=== PATIENT | female | born 1985 | race Hispanic/Latino ===

== ENCOUNTER 2022-05-05 14:00 | Inpatient (IN) | payer BC ==
[~2022-05-05] VITALS: Ht 157.5 cm; Wt 88.0 kg
[~2022-05-05 14:00] MED LIST: PREN-196 PO
[2022-05-05 16:08] LABS: HEMATOCRIT 33.5 % (36-48); MEAN CORPUSCULAR HEMOGLOBIN 30.1 pg (27.0-33.0); MEAN CORPUSCULAR HGB CONC 34.6 g/dL (32.0-36.0); MEAN CORPUSCULAR VOLUME 86.8 fL (79-99); RED BLOOD CELL COUNT(AUTO) 3.86 MIL/uL (4.00-5.50); RED CELL DISTRIBUTION WIDTH 15.8 % (11.0-15.5); WHITE BLOOD COUNT (AUTO) 8.1 K/uL (4.8-10.8)
[2022-05-05 20:47] LABS: RAPID PLASMA REAGIN NONREACTIVE (NONREACTIVE)
[2022-05-06] MEDS ORDERED: CEFAZOLIN SODIUM 1 GM VIAL IVP PRN (05:30)
[2022-05-06] MEDS ORDERED: CALDOLOR 800MG+NS 250ML 250 ML IV PRN (05:30)
[2022-05-06] MEDS ORDERED: LACTATED RINGERS 1000ML 1,000 ML IV SCH (05:30)
[2022-05-06 06:00] VITALS: BP 116/78
[2022-05-06 06:00] LABS: APPEARANCE,URINE CLEAR (CLEAR); BILIRUBIN,URINE NEGATIVE (NEGATIVE); COLOR,URINE YELLOW (YELLOW); GLUCOSE, URINE (UA) NEGATIVE (NEGATIVE); KETONES,URINE NEGATIVE (NEGATIVE); LEUKOCYTE ESTERASE ,URINE NEGATIVE (NEGATIVE); NITRATE,URINE NEGATIVE (NEGATIVE); OCCULT BLOOD,URINE TRACE-INTACT (NEGATIVE); PH,URINE 6.5 (5.0-8.0); PROTEIN,URINE NEGATIVE (NEGATIVE); UROBILINOGEN,URINE 0.2 mg/dL (0.2-1.0)
[2022-05-06 06:16] LABS: BACTERIA,URINE Moderate /HPF (None Seen); SQUAMOUS EPITHELIAL CELL,UR Moderate /HPF (0-2)
[2022-05-06 06:18] LABS: RBC,URINE 0-1 /HPF (0-1)
[2022-05-06] MEDS ORDERED: CITRIC ACID/SODIUM CITRATE 30 ML UDCUP ONE (06:37)
[2022-05-06] MEDS ORDERED: MORPHINE PF 100MG/10ML AMP IV ONE (06:41)
[2022-05-06] MEDS ORDERED: FENTANYL CITRATE PF 50 MCG/1 ML 2ML VIAL ONE (06:41)
[2022-05-06] MEDS ORDERED: PHENYLEPHRINE HCL 10 MG/ML 1ML VIAL IV ONE (06:57)
[2022-05-06] MEDS ORDERED: ONDANSETRON 4MG INJ ONE (07:02)
[2022-05-06] MEDS ORDERED: OXYTOCIN 10 USP UNITS/ML ONE (07:17)
[2022-05-06] MEDS ORDERED: FAMOTIDINE 20MG VIAL IV ONE (07:26)
[2022-05-06 10:09] VITALS: BP 105/61
[2022-05-06 11:08] VITALS: BP 96/60
[2022-05-06] MEDS ORDERED: MEPERIDINE-PF 75 MG/ML SYG IM PRN (11:30)
[2022-05-06] MEDS ORDERED: OXYTOCIN-LR 20 UNITS/1000 ML 1,000 ML IV PRN (11:30)
[2022-05-06] MEDS ORDERED: PROMETHAZINE HCL 25 MG/ML 1ML AMPULE IM PRN (11:30)
[2022-05-06] MEDS ORDERED: 0.9%NACL 10ML VIAL IVP PRN (11:30)
[2022-05-06] MEDS: ACETAMINOPHEN WITH CODEINE 1 TAB TAB PO PRN (13:06)
[2022-05-06] MEDS: DEXTROSE 5 %-0.45 % NACL 1,000 ML IV PRN (14:32)
[2022-05-06] MEDS: CEFAZOLIN SODIUM 1 GM VIAL IVP SCH ×2 (15:21→23:05)
[2022-05-06] MEDS: CALDOLOR 800MG+NS 250ML 250 ML IV SCH ×2 (15:59→23:06)
[2022-05-06 16:16] VITALS: BP 97/59
[2022-05-06 20:02] VITALS: BP 94/59
[2022-05-06] MEDS ORDERED: DiphenhydrAMINE HCL 50 MG/ML VIAL ONE (21:07)
[2022-05-06] MEDS ORDERED: EPHEDRINE SULFATE 50 MG/ML AMPULE IVP PRN (21:30)
[2022-05-06] MEDS ORDERED: DiphenhydrAMINE HCL 50 MG/ML VIAL IVP PRN (21:30)
[2022-05-06] MEDS ORDERED: ONDANSETRON 4MG INJ IVP PRN (21:30)
[2022-05-06] MEDS ORDERED: NALOXONE HCL 0.4 MG/1 ML ML IVP PRN ×3 (21:30)
[2022-05-06] MEDS ORDERED: LORATADINE 10 MG TABLET PO PRN (21:30)
[2022-05-07] VITALS (7 sets, daily range): BP systolic 91–117; BP diastolic 50–68
[2022-05-07] MEDS: DEXTROSE 5 %-0.45 % NACL 1,000 ML IV PRN (02:32)
[2022-05-07 05:31] LABS: HEMATOCRIT 32.5 % (36-48); MEAN CORPUSCULAR HGB CONC 33.2 g/dL (32.0-36.0); MEAN CORPUSCULAR VOLUME 87.4 fL (79-99); RED BLOOD CELL COUNT(AUTO) 3.72 MIL/uL (4.00-5.50); RED CELL DISTRIBUTION WIDTH 15.9 % (11.0-15.5)
[2022-05-07] MEDS ORDERED: LANOLIN 30GM OINTMENT TP PRN (06:00)
[2022-05-07] MEDS ORDERED: HYDROCODONE/ACETAMINOPHEN 5/325 MG TAB PO PRN (06:00)
[2022-05-07] MEDS ORDERED: BISACODYL 10 MG SUPP.RECT RC PRN (06:00)
[2022-05-07] MEDS ORDERED: ACETAMINOPHEN WITH CODEINE 1 TAB TAB PO PRN (06:00)
[2022-05-07] MEDS ORDERED: ACETAMINOPHEN 500 MG TABLET PO PRN (06:00)
[2022-05-07] MEDS: ACETAMINOPHEN WITH CODEINE 1 TAB TAB PO PRN ×3 (07:53→22:44)
[2022-05-07] MEDS: DOCUSATE SODIUM 100 MG CAP PO SCH ×2 (08:50→20:28)
[2022-05-07] MEDS: SIMETHICONE 80 MG TAB.CHEW PO PRN ×2 (08:50→20:28)
[2022-05-07] MEDS: IBUPROFEN 600 MG TABLET PO PRN (11:30)
[2022-05-08] MEDS: IBUPROFEN 600 MG TABLET PO PRN ×2 (02:35→08:28)
[2022-05-08 04:09] VITALS: BP 124/72
[2022-05-08 07:11] VITALS: BP 103/55
[2022-05-08] MEDS: DOCUSATE SODIUM 100 MG CAP PO SCH (08:26)
[2022-05-08] MEDS: SIMETHICONE 80 MG TAB.CHEW PO PRN (08:26)
[2022-05-08 11:05] VITALS: BP 109/69
[2022-05-08 11:10] VITALS: BP 124/69
[2022-05-08] MEDS ORDERED: ACET-2079 PO (12:38)
== END 2022-05-08 13:05 | disposition home or self-care (01) | DRG 785 ==
LOC: EDSTATUS 14:00 → LDH 05-06 05:21 → WSH 05-06 10:05
PROVIDERS: ADMIT Obstetrics & Gynecology; ATTEND Obstetrics & Gynecology
PROC: 0UB70ZZ Excision of Bilateral Fallopian Tubes, Open Approach (ICD-10-PCS; 2022-05-06)
PROC: 10D00Z1 Extraction of Products of Conception, Low, Open Approach (ICD-10-PCS; principal; 2022-05-06 07:00)
DX: O34.211 Maternal care for low transverse scar from previous cesarean delivery (principal); Z3A.39 39 weeks gestation of pregnancy; Z30.2 Encounter for sterilization; O99.214 Obesity complicating childbirth; Z37.0 Single live birth
CPT/HCPCS: 36415; 59510; 81001; 85027; 86592; 86701; 86850; 86900; 86901; 87088; 87340; 87390; 87426; A4344; G0378; J0690; J1200; J1741; J2274; J2370; J2405; J2590; J3010; J3490; J7120